=== PATIENT | female | born 1940 | race Caucasian/White ===

== ENCOUNTER 2022-10-31 09:34 | Emergency (ER) | payer MEDICARE, SELFPAY ==
[2022-10-31] VITALS (17 sets, daily range): BP systolic 133–154; BP diastolic 69–87; PULSE 71–87; RESP 18; TEMP 36.6; O2SAT 95–100
--- NOTE | ~2022-10-31 | CT_ITS ---
EXAMINATION: CT abdomen pelvis wo/w con DATE: 10/31/2022 14:24 INDICATION: Hematuria. Low abdominal pain. TECHNIQUE: Computed tomography (CT) of the abdomen and pelvis was performed without and with intraven ous contrast using a total of 130 mL Omnipaque-350 intravenous contrast with a double-bolus technique for simultaneous opacification of the renal parenchyma and renal collecting system. Automated exposu re control and iterative reconstruction technique were employed. The dose-length product was 841.17 m Gy-cm. COMPARISON: None FINDINGS: The visualized portions of the lung bases and is a mild atelectasis. No pleural effusion. The heart s ize is normal. No pericardial effusion. There is ectasia of ascending aorta measuring 4.3 cm . The li lyly, gallbladder, spleen, pancreas, adrenal glands, and left kidney are normal. There is a 7 mm cyst in right kidney. There is no urolithiasis. The ureters are well opacified and are normal. The bladder is distended. There is diverticulosis of the colon without evidence of diverticulitis. There are no dilated loops of bowel. The appendix is not visualized. There is calcified atherosclerosis of the aor ta and many of the other arteries. There are no pathologically enlarged lymph nodes. There is no free intraperitoneal fluid. There is severe thoracic and lumbar spondylosis. There is mild chronic anteri or wedging of T8 vertebral body. IMPRESSION: 1. No etiology for hematuria. Reviewed, dictated and finalized at location A.
[2022-10-31 09:59] LABS: Appearance Urine Clear (Clear); Bacteria Urine None Seen /hpf; Bilirubin Urine Negative (Negative); Blood Urine 3+ (Negative); Color Urine Yellow (Yellow); Glucose Urine UA Negative (Negative); Ketones Urine Negative (Negative); Leukocyte Esterase Ur 2+ LEU/UL (Negative); Nitrate Urine Negative (Negative); Non Pathogenic Casts 0-2; Protein Urine 1+ mg/dL (Negative); RBC Urine >100 /hpf (0-2); Squamous Epithelial Cell Urine None seen /hpf (Few); Urobilinogen Urine 0.2 mg/dL (<2.0); WBC Urine >100 /hpf
[2022-10-31 10:02] LABS: Add Urine Microscopic? YES
--- NOTE | 2022-10-31 11:52 | ED.FEMALEGU ---
HPI - Female Genitourinary General Chief complaint: Urogenital-Female Stated complaint: Blood in urine Time Seen by Provider: 10/31/22 10:59 Source: patient Mode of arrival: ambulatory Limitations: no limitations History of Present Illness HPI Narrative: Patient is a 81 y/o female who presents to the ED with c/o hematuria. Patient reports she noticed blood in her urine last night and this morning. She has noticed small clots coming out in the urine today. Denies any significant dysuria. Denies urinary frequency or urgency. She called her primary care doctor and was referred here for further evaluation. She has had some lower abdominal discomfort over the last couple of days, but denies any back pain, fevers, nausea, vomiting. Denies diarrhea, rectal bleeding, melena. Related Data Allergies Allergy/AdvReac Type Severity Reaction Status Date / Time No Known Allergies Allergy Verified 10/31/22 10:11 Review of Systems Review of Systems: CONSTITUTIONAL: Denies fever, chills, or sweats. CARDIOVASCULAR: Denies chest pain. RESPIRATORY: Denies dyspnea. GASTROINTESTINAL: See HPI. GENITOURINARY: See HPI. SKIN: Denies rash or itching. MUSCULOSKELETAL: Denies back pain, joint pain, or myalgia. NEUROLOGIC: Denies headache, numbness, or weakness. All systems reviewed & are unremarkable except as noted in HPI and below Exam Narrative: GENERAL: Well appearing, well-nourished, non-toxic, in no acute distress. HEAD: Normocephalic, atraumatic. NECK: Supple. No adenopathy, no masses. RESPIRATORY: Airway patent, respirations nonlabored. Clear to auscultation bilaterally, no rales, rhonchi, wheezing. CARDIOVASCULAR: Regular rate and rhythm without murmurs, rubs, or gallops. Radial pulses 2+ and equal bilaterally. ABDOMINAL: Soft, no significant reproducible tenderness throughout abdomen, nondistended, no hepatosplenomegaly. Normoactive BS. MUSCULOSKELETAL: Moves all extremities. Strength/ROM intact without gross deformities. SKIN: Warm, dry, normal color. No rashes. NEURO: A&O X3. Speech clear. Cranial nerves II-XII grossly intact. Steady gait. No ataxic movements. PSYCHIATRIC: Appropriate mood and affect. Normal interaction. Course Vital Signs Vital signs: Vital Signs Pulse Rate 87 08/25/23 09:41 Respiratory Rate 18 10/31/22 09:41 Blood Pressure 154/87 H 10/31/22 09:41 Pulse Oximetry 100 10/31/22 09:41 Oxygen Delivery Room Air 10/31/22 09:41 Temperature 97.8 F 10/31/22 12:12 Pulse Rate 71 10/31/22 12:46 Respiratory Rate 18 10/31/22 12:46 Blood Pressure 148/69 H 10/31/22 14:31 Pulse Oximetry 100 10/31/22 15:19 Oxygen Delivery Room Air 10/31/22 09:41 MDM - Female Genitourinary MDM Narrative Medical decision making narrative: Patient presented to ED with report of painless hematuria. Vitals stable upon arrival. UA consistent with infection with 2+ esterase, greater than 100 RBC and WBC. Sent for culture. Basic laboratory studies obtained and showing leukocytosis of 11.9. Stable kidney function with creatinine of 0.7. CMP otherwise unremarkable. CT urogram obtained and without abnormalities. No bladder lesions, ureterolithiasis, or other abnormalities. Discussed lab and imaging findings with patient. She has remained stable throughout ED stay. Given fluids and ceftriaxone in the ED. Discussed likelihood of hemorrhagic cystitis, need for antibiotic treatment and close urology follow-up. Patient in agreement with this plan. Will be discharged on Keflex. Discussed strict return precautions. Patient discharged in stable condition. Patient CT scan did show ectasia of her ascending aorta. Discussed this with patient at length. Advised follow-up with primary care doctor for further monitoring. Medical Records Attestation: I reviewed the patient's medical records. Lab Data Attestation: I reviewed the patient's lab results. 10/31/22 12:54 10/31/22 12:54
[2022-10-31] MEDS: SODIUM CHLORIDE 0.9% IV 1,000 ML 999 ML IV CONT (12:52)
[2022-10-31 13:01] LABS: Basophils Percent Auto 0.3 % (0.2-1.2); Eosinophils Absolute Auto 0.1 K/mm3 (0-0.3); Eosinophils Percent Auto 0.8 % (0-4.4); Hematocrit 38.9 % (37.0-47.0); Hemoglobin 12.5 g/dL (12.0-15.0); Immature Granulocyte Absolute 0.03 K/mm3 (0.00-0.031); Immature Granulocyte Percent A 0.3 % (0-0.5); Lymphocytes Absolute Auto 1.75 K/mm3 (0.9-3.2); Lymphocytes Percent Auto 14.7 % (18.3-44.2); Mean Corpuscular HGB Conc 32.1 g/dl (32-36); Mean Corpuscular Hemoglobin 30.1 pg (26-34); Mean Corpuscular Volume 93.7 fl (80-100); Mean Platelet Volume 8.7 fl (7.4-10.4); Monocytes Absolute Auto 0.7 K/mm3 (0.1-0.6); Monocytes Percent Auto 5.9 % (2.6-8.5); Neutrophils Absolute Auto 9.3 K/mm3 (1.3-6.7); Platelet Count Result 231 k/mm3 (150-375); Red Blood Count 4.15 M/mm3 (4.2-5.4); Red Cell Distribution Width 13.2 % (11.5-14.5); White Blood Count 11.9 K/mm3 (4.5-10.0)
[2022-10-31 13:22] LABS: Sodium 139 mmol/L (137-145)
[2022-10-31 13:27] LABS: Alanine Aminotransferase 21 U/L (6-35); Albumin Level 3.9 g/dL (3.5-5.1); Alkaline Phosphatase 58 U/L (38-126); Anion Gap 4 mmol/L (8-16); Aspartate Amino Transferase 33 U/L (14-36); Bilirubin,Total 0.7 mg/dL (0.2-1.3); Blood Urea Nitrogen 20 mg/dL (7-17); Calcium 9.1 mg/dL (8.4-10.2); Carbon Dioxide 29 mmol/L (22-30); Chloride 106 mmol/L (98-107); Estimated CRCL calculation 55 ml/min; Estimated Glomerular Filt Rate > 60; Glucose 86 mg/dL (65-110); Potassium 4.3 mmol/L (3.4-5.0)
== END 2022-10-31 16:06 | disposition home or self-care (01) ==
PROVIDERS: Emergency Medicine; Emergency Provider Physician Assistant; PCP Internal Medicine
DX: N30.01 Acute cystitis with hematuria (principal); I77.819 Aortic ectasia, unspecified site
CPT/HCPCS: 36415; 74178; 80053; 81001; 85025; 87077; 87086; 87186; 96361; 96365; 96366; 99284; J0696; J7030; Q9967

== ENCOUNTER 2023-04-23 08:33 | Outpatient (CLI) | payer MEDICARE, SELFPAY ==
--- NOTE | ~2023-04-23 | CT_ITS ---
EXAMINATION: CTA chest DATE: 04/23/2023 09:20 INDICATION: Aneurysm of ascending aorta without rupture. TECHNIQUE: Computed tomographic angiography (CTA) of the chest was performed with 100 mL Omnipaque-35 0 intravenous contrast. Automated exposure control and iterative reconstruction technique were employ ed. The dose-length product was 200.23 mGy-cm. Maximum intensity projection 3D-reconstructions of the aorta and other arteries were constructed by the technologist on a separate workstation. COMPARISON: CT abdomen and pelvis 10/31/2022 FINDINGS: There is mild scarring at the lung apices. A calcified left lung nodule is consistent with old granulomatous disease. There is mild atelectasis bilaterally. No pleural effusion. There is a 9 m m nodule in right lower lobe, likely not clinically significant. The heart size is normal. Superior v michael cava is duplicated. No pericardial effusion. The aorta measures 3.5 cm at the sinuses of Valsalva , 3.1 cm at the sinotubular junction, 4.4 cm in the mid ascending aorta, 3.1 cm at the isthmus, and 3 .1 cm in the mid descending aorta. Aortic atherosclerosis is noted. There is cortical thinning of the kidneys. There is a 7 mm cyst in right kidney. There is severe cervical and thoracic spondylosis. Th ere is mild chronic anterior wedging of multiple midthoracic vertebral bodies. IMPRESSION: 1. Ectasia of ascending aorta measuring 4.4 cm. Reviewed, dictated and finalized at location A. 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
[2023-04-23 08:59] LABS: Estimated Glomerular Filt Rate 48
== END 2023-04-23 08:34 | disposition home or self-care (01) ==
LOC: ANHIMG 08:37
PROVIDERS: PCP Internal Medicine; Visit Provider Internal Medicine Cardiovascular Disease
DX: I71.40 Abdominal aortic aneurysm, without rupture, unspecified (principal)
CPT/HCPCS: 71275; Q9967

== ENCOUNTER 2023-05-22 14:10 | Outpatient (CLI) | payer MEDICARE, SELFPAY ==
--- NOTE | ~2023-05-22 | US_ITS ---
US arterial ankle brachial ind INDICATION: Bilateral leg pain TECHNIQUE: Segmental pressures and plethysmographic and Doppler waveforms of the brachial and lower e xtremity arteries were obtained. COMPARISON: None. FINDINGS: Right and left brachial artery pressures of 120 mm Hg and 123 mm Hg, respectively, are concordant (no rmal difference <= 30 mmHg). The right ankle-brachial index (LUZ) is 1.08 (normal >= 0.9-1.0). The right great toe-brachial index (TBI) is 0.4 (normal >= 0.60). The left LUZ is 1.12. The left TBI is 0.43. IMPRESSION: 1. Diminished bilateral toe brachial indices, consistent with peripheral arterial disease. Reviewed, dictated and finalized at location A. IMPRESSION: 1. Diminished bilateral toe brachial indices, consistent with peripheral arteri al disease.
== END 2023-05-22 14:11 | disposition home or self-care (01) ==
LOC: ANHIMG 14:14
PROVIDERS: PCP Internal Medicine; Visit Provider Internal Medicine
DX: I73.9 Peripheral vascular disease, unspecified (principal)
CPT/HCPCS: 93922

== ENCOUNTER 2023-06-08 10:41 | Outpatient (CLI) | payer MEDICARE, SELFPAY ==
[2023-06-08 12:15] LABS: Cholesterol 255 mg/dL (0-200); HDL Direct 66 mg/dL; Triglycerides 145 mg/dL (<150)
[2023-06-08 12:26] LABS: LDL Cholesterol Direct 145 mg/dL
== END 2023-06-08 10:42 | disposition home or self-care (01) ==
LOC: ANHLAB 10:45
PROVIDERS: PCP Internal Medicine; Visit Provider Internal Medicine
DX: I73.9 Peripheral vascular disease, unspecified (principal); I71.21 Aneurysm of the ascending aorta, without rupture
CPT/HCPCS: 36415; 80061

== ENCOUNTER 2023-11-09 18:32 | Emergency (ER) | payer MEDICARE, SELFPAY ==
--- NOTE | ~2023-11-09 | XR_ITS ---
EXAMINATION: XR chest 2V DATE: 11/09/2023 21:08 INDICATION: Cough, body aches and chills TECHNIQUE: PA and lateral views of the chest were obtained. COMPARISON: Chest CT dated 04/23/2023 FINDINGS: The lungs are clear with no focal airspace opacities, pulmonary edema, pleural effusion or pneumothor ax. The cardiomediastinal silhouette is normal. Mild thoracic kyphosis with moderate spondylosis. IMPRESSION: 1. No acute cardiopulmonary disease. Reviewed, dictated and finalized at location A.
[2023-11-09 18:35] VITALS: BP 134/85; PULSE 99; RESP 18; TEMP 37.5; O2SAT 99
[2023-11-09 19:17] LABS: Strep Group A RT-PCR NOT DETECTED (Negative)
[2023-11-09 19:31] LABS: Influenza A QL RT-PCR Negative (Negative); Influenza B QL RT-PCR Negative (Negative); SARS-CoV-2 RNA PCR Negative (Negative)
--- NOTE | 2023-11-09 20:57 | ED.GENADULT ---
HPI - General Adult General Chief complaint: Unspecified Stated complaint: ST, chills Time Seen by Provider: 11/09/23 20:34 Source: patient Mode of arrival: ambulatory Limitations: no limitations History of Present Illness HPI narrative: This is a 82 year old female that presents to the ER for cold symptoms. Present over the last week. Reports cough, congestion, rhinorrhea, sore throat. Also reports left ear pain. Reports chills. Patient took Tylenol prior to arrival. Denies shortness of breath. Related Data Allergies Allergy/AdvReac Type Severity Reaction Status Date / Time No Known Allergies Allergy Verified 10/31/22 10:11 Review of Systems Review of Systems: CONSTITUTIONAL: Reports chills. Denies fever ENT: Reports rhinorrhea, congestion, sore throat, and otalgia. RESPIRATORY: Reports cough. Denies dyspnea. All systems reviewed & are unremarkable except as noted in HPI and below PMFSH Past Medical History Medical History (Updated 11/09/23 @ 21:22 by Blanka Keenan PA-C) History of hyperlipidemia History of hypertension Social History Social History (Updated 11/09/23 @ 21:19 by Blanka Keenan PA-C) Smoking status: Never smoker Exam Narrative: GENERAL: Well-appearing, well-nourished, and in no acute distress. HEAD: Normocephalic, atraumatic. EYES: EOMI. ENT: Nares clear, no rhinorrhea or epistaxis. Mucous membranes moist. Oropharynx with mild redness, without tonsillar hypertrophy exudate or other lesions. Right TM pearly davies non-bulging. Left TM erythematous NECK: Supple. No adenopathy or masses. CHEST: Clear to auscultation. No respiratory distress. No wheezes rales or rhonchi HEART: Regular rate and rhythm. No murmur heard. Normal peripheral pulses. EXTREMITIES: Normal range of motion. No edema. SKIN: Warm, dry, no rash. NEURO: No focal deficits. Alert and oriented x3. PSYCH: Normal mood and affect Course Course Emergency Course: Patient updated on workup and agrees with plan of care Vital Signs Vital signs: Vital Signs Temperature 99.5 F 11/09/23 18:35 Pulse Rate 99 11/09/23 18:35 Respiratory Rate 18 11/09/23 18:35 Blood Pressure 134/85 11/09/23 18:35 Pulse Oximetry 99 11/09/23 18:35 Oxygen Delivery Room Air 11/09/23 18:35 Temperature 99.5 F 11/09/23 18:35 Pulse Rate 99 11/09/23 18:35 Respiratory Rate 18 11/09/23 18:35 Blood Pressure 134/85 11/09/23 18:35 Pulse Oximetry 99 11/09/23 18:35 Oxygen Delivery Room Air 11/09/23 18:35 Medical Decision Making MDM Narrative Medical decision making narrative: Patient presents to the emergency department for cold symptoms present over the last week. She is afebrile and nontoxic appearing. Oxygen saturation is normal on room air. Chest x-ray without evidence of pneumonia. Influenza, COVID, and strep screens are negative. Patient does have evidence of otitis media in the left ear. Will be started on oral antibiotics. Symptoms/exam also consistent with bronchitis. Will be given albuterol inhaler if needed. She is to follow-up with PCP. She was given warnings to return to the ER Vital Signs Vital Signs: Vital Signs Temperature 99.5 F 11/09/23 18:35 Pulse Rate 99 11/09/23 18:35 Respiratory Rate 18 11/09/23 18:35 Blood Pressure 134/85 11/09/23 18:35 Pulse Oximetry 99 11/09/23 18:35 Oxygen Delivery Room Air 11/09/23 18:35 Temperature 99.5 F 11/09/23 18:35 Pulse Rate 99 11/09/23 18:35 Respiratory Rate 18 11/09/23 18:35 Blood Pressure 134/85 11/09/23 18:35 Pulse Oximetry 99 11/09/23 18:35 Oxygen Delivery Room Air 11/09/23 18:35 Lab Data Lab results reviewed: Yes I reviewed the patient's lab results. Labs: Lab Results 11/09/23 Range/Units 18:41 Influenza A (RT-PCR) Negative (Negative) Influenza B (RT-PCR) Negative (Negative) SARS-CoV-2 RNA (RT-PCR) Negative (Negative) Group A Strep (PCR) Not detected (Negativ
[2023-11-09] MEDS: AMOXICILLIN/CLAVULANATE K 875-125 MG TAB 1 TABLET PO (21:56)
[2023-11-09 22:00] VITALS: BP 154/75; PULSE 83; RESP 16; TEMP 36.7; O2SAT 95
== END 2023-11-09 22:08 | disposition home or self-care (01) ==
PROVIDERS: Emergency Medicine; Emergency Provider Physician Assistant; PCP Internal Medicine
DX: H66.90 Otitis media, unspecified, unspecified ear (principal); J20.9 Acute bronchitis, unspecified; E78.5 Hyperlipidemia, unspecified; I10 Essential (primary) hypertension; Z20.822 Contact with and (suspected) exposure to COVID-19
CPT/HCPCS: 71046; 87636; 87651; 99283; A9270

== ENCOUNTER 2024-04-27 09:06 | Outpatient (CLI) | payer OTHER, SELFPAY ==
--- NOTE | ~2024-04-27 | CT_ITS ---
Clinical Indication: Aortic aneurysm rupture CT Scan of the Chest with Contrast: Technique: Contiguous sections were acquired throughout the chest after intravenous administration of 100 cc of Omnipaque 350. Dose reduction technique was used on this scan by utilizing automated expos ure control and iterative reconstruction technique. The dose-length product (DLP) was 181.86 mGy-cm. COMPARISON: 04/23/2023 Findings: There is no evidence of any significant mediastinal, hilar or axillary lymphadenopathy. There is no f illing defect in the pulmonary arterial tree to suggest pulmonary embolus. Ascending aortic aneurysm measures 4.5 cm in diameter. There is no evidence of pleural or pericardial effusion. The lungs are clear. No pulmonary nodules or infiltrates are noted. Images through the upper abdomen reveal no abnormalities. Impression: Ascending aortic aneurysm measures 4.5 cm in diameter. Clear lungs. Reviewed, dictated and finalized at [facility]. [employer] Impression: Ascending aortic aneurysm measures 4.5 cm in diameter. Clear lungs.
--- OUTSIDE RECORDS SUMMARY | 2024-04-27 09:14 | XMS_ITS | Clinical Summary ---
Author Organization [facility] Address [address] [place] [address] Phone Care Team Providers Care Vending Machine Technician Name Role Phone Rory Tilley MD Primary Care Provider Allergies No known active allergies Medications Calcium Carbonate+Vitam in D 600-200 MG-UNIT Tablet Activ e Multiple Vitamins-Minera ls (Multivitamin Adults 50+) Tablet Active latanoprost (XALATAN) 0.005 % Solution INSTILL 1 DROP INTO EACH EYE ONCE DAILY IN THE EVENING 2 Active fish oil-omega-3 fatty acids 1000 MG Capsule Take 1,000 mg by mouth daily. Active triamcinolone (KENALOG) 0.1 % Ointment Apply thin film to affected area(s) twice daily until healed. 80 g 3 3 Active albuterol 108 (90 Base) MCG/ACT Aerosol Solution 4 Active atorvastatin (LIPITOR) 10 MG Tablet TAKE 1 TABLET BY MOUTH DAILY 30 Tablet 3 4 Active lisinopril (PRINIVIL, ZESTRIL) 10 MG Tablet Take 1 Tablet by mouth daily. 90 Tablet 1 5 Active lisinopril (PRINIVIL, ZESTRIL) 10 MG Tablet Take 1 Tablet by mouth daily. 90 Tablet 1 4 04/18/19 Discontinu ed(Reorder ) lisinopril (PRINIVIL, ZESTRIL) 10 MG Tablet Take 1 Tablet by mouth daily. 90 Tablet 1 5 04/20/19 25 Discontinu ed(Reorder ) Active Problems Problem Noted Date Diagnosed Date Other hyperlipidemia 12/02/2023 Aneurysm of ascending aorta without rupture 07/2022 Essential hypertension, benign 11/13/2021 Encounters Date Type Department Care Team Description [facility] [address] [place] [address] Rory Tilley MD 04/18/2024 [facility] [address] [place] [address] Rory Tilley MD Medication Refill 02/12/2024 [facility] [address] [place] [address] Rory Tilley MD Medication Refill from Last 3 Months Immunizations Immunization Administration Dates Next Due Influenza Vaccine, Quadrivalent, PF 11/13/2021 Influenza, Quadrivalent, Adjuvanted 11/11/2022 Family History Medical History Relation Name Comments No Known Problems Brother No Known Problems Sister Relation Name Status Comments Brother Alive Father Mother Sister Alive Social History Tobacco Use Types Packs/Day Years Used Date Smoking Tobacco: Never Passive Smoke Exposure: Never Smokeless Tobacco: Never Tobacco Cessation:Counseling Given: Not Answered Alcohol Use Standard Drinks/Week Comments Not Currently 0 (1 standard drink = 0.6 oz pur e alcohol) [facility] Utilities Answer Date Recorded In the past 12 months has e [employer], gas, oil, or water [employer] threatened to shut off services in your home? No 05/10/2023 Social Connection and Isolat ion Panel [NHANES] Answer Date Recorded In a typical week, how many times do you talk on the phone with family, friends, or neighbors? Three times a week 05/10/2023 How often do you get togethe r with friends or relatives? Three times a week 05/10/2023 How often do you attend chur or judaism services? More than 4 times per year 05/10/2023 Do you belong to any clubs o r organizations such as quaker groups, unions, fraternal or athletic groups, or school groups? Yes 05/10/2023 How often do you attend meet ings of the clubs or organizations you belong to? More than 4 times per year 05/10/2023 Are you , , di vorced, , never , or living with a partner? 05/10/2023 AUDIT-C Answer Date Recorded Q1: How often do you have a drink containing alcohol? Never 05/10/2023 Q2: How many drinks containi ng alcohol do you have on a typical day when you are drinking? Patient does not drink Q3: How often do you have si x or more drinks on one occasion? Never 05/10/2023 Overall Financial Resource Strain (CARDIA) Answe r Date Recorded How hard is it for you to pa y for the very basics like food, housing, medical care, and heating? Not hard at all 05/10/2023 PHQ-2 Answer Date Recorded Total Score - Questions 1-9 0 07/2023 [facility]ational Stress Questionnaire Answer Date Recorded Do you feel stress - tense, restless, nervous, or anxious, or unable to sleep at night because your mind is troubled all the time - these days? Not at all 05/10/2023 Exercise Vital Sign Answer Date Recorde d On average, how many days pe r week do you engage in moderate to strenuous exercise (like a brisk walk)? 4 days 05/10/2023 On average, how many minutes do you engage in exercise at this level? 60 min 05/10/2023 Hunger Vital Sign Answer Date Recorded Within the past 12 months, y ou worried that your food would run out before you got the money to buy more. Never true 05/10/19 24 Within the past 12 months, t he food you bought just didn't last and you didn't have money to get more. Never true 05/10/2023 PRAPARE - Transportation Answer Date Re corded In the past 12 months, has l ack of transportation kept you from medical appointments or from getting medications? No 05/2023 In the past 12 months, has l ack of transportation kept you from meetings, work, or from getting things needed for daily living? No 05/10/2023 Housing Stability Vital Sign Answer Rod e Recorded In the last 12 months, was t here a time when you were not able to pay the mortgage or rent on time? No 05/10/2023 In the last 12 months, how many places have you lived? 1 05/10/2023 In the last 12 months, was t here a time when you did not have a steady place to sleep or slept in a long-term (including now)? No 05/10/2023 Sexually Active Control Partners Comments Not Currently Comments No Sex and Gender Information Value Date Recorded Sex Assigned at Not on file Legal Sex Female 9:35 AM CDT Gender Identity Not on file Sexual Orientation Not on file Last Filed Vital Signs Vital Sign Reading Time Taken Comments Blood Pressure 120/66 12/02/2023 2:31 PM CDT Pulse 64 12/02/2023 2:31 PM CDT Temperature 36.2 C (97.1 F) 12/02/2023 2:31 PM CDT Respiratory Rate 12 12/02/2023 2:31 PM CDT Oxygen Saturation 97% 12/02/2023 2:31 PM CDT Inhaled Oxygen Concentration - - Weight 67.7 kg (149 lb 3.2 oz) 12/02/2023 2:31 P M CDT Height 170.2 cm (5' 7 ) 12/02/2023 2:31 PM CDT Body Mass Index 23.37 12/02/2023 2:31 PM CDT Plan of Treatment Upcoming Encounters Date Type Department Care Team (Late st Contact Info) Description 05/31/2024 9:30 AM CDT Office Visit [facility] [place] [address] [place] [address] Rory Tilley MD [address] [place] [address] Health Maintenance Due Date Last Done Comments Hepatitis C Virus (HCV) Screening 1940 TdaP Immunization 1940 Zoster Immunization (1 of 2) 1992 Respiratory Syncytial Virus (RSV) Immunization (Adult) (1 - 1-dose 75+ series) 2017 Influenza Immunization (#1) 2023 09/0 07/2022, 11/13/2021, 12/04/2020, Additional history exists SARS-COV-2 Immunization (2023- season) 2023 06/29/2020, 05/31/2020 DEXA Bone Density 05/16/2024 Postponed from 1942 (Lower Priority for Now) Pneumococcal Immunization (50+ years) Completed 10/18/2019, 04/09/2018 Hepatitis B Immunization Aged Out No longer eligible based on patient's age to complete this topic Meningococcal Immunization (ACWY) Aged Out No longer eligible based on patient's age to complete this topic Rotavirus Immunization Aged Out No lo nger eligible based on patient's age to complete this topic Insurance MEDICARE C BCBS PPO Care Teams Vending Machine Technician Relationship Specialty Start Date End Date Rory Tilley MD [address] [facility] [place] [address] PCP - General Internal Medicine 11/13/21
--- OUTSIDE RECORDS SUMMARY | 2024-04-27 09:14 | XMS_ITS | Encounter Summary ---
Author Organization [facility] Address [address] [place] [address] Phone Care Team Providers Care Awning Spreader Name Role Phone Rory Tilley MD Primary Care Provider Reason for Visit * Reason Comments Medication Refill Encounter Details Date Type Department Care Team (Late st Contact Info) Description 06/24/2023 Refill [facility] [place] [address] [place] [id number] Rory Tilley MD [address] [place] [address] Medication Refill Social History Tobacco Use Types Packs/Day Years Used Date Smoking Tobacco: Never Passive Smoke Exposure: Never Smokeless Tobacco: Never Alcohol Use Standard Drinks/Week Comments Not Currently 0 (1 standard drink = 0.6 oz pur e alcohol) [place] Utilities Answer Date Recorded In the past 12 months has e electric, gas, oil, or water company threatened to shut off services in your [...] How often do you attend chur or sikhism services? More than 4 times per year 05/10/2023 Do you belong to any clubs o r organizations such as alevism groups, unions, fraternal or athletic groups, or [...] Total Score - Questions 1-9 0 07/2023 [facility] - Occupational Stress Questionnaire Answer Date Recorded [...] on file Sexual Orientation Not on file documented as of this encounter Miscellaneous Notes * Telephone Encounter - Daphnie Peter RN - 06/24/2023 12:38 PM CDT Medication failed the protocol, provider to review and approve the medication order if appropriate. Requested Prescriptions Pending Prescriptions Disp Refills lisinopril (PRINIVIL, ZESTRIL) 10 MG Tablet [Pharmacy Med Name: LISINOPRIL 10MG TABLETS] 90 Tablet 1 Sig: TAKE 1 TABLET BY MOUTH DAILY MAJOR Inhibitors Protocol Failed - 06/24/2023 12:12 PM Failed - Serum potassium on record in past 12 months No results found for: POTASSIUM , POCTK Failed - GFR on record in past 12 months No results found for: GFRNA Passed - Blood pressure on record in past 12 months Clinician-entered: BP Readings from Last 3 Encounters: 05/12/23 118/60 11/11/22 118/72 10/10/22 140/80 Patient-entered: No data recorded Passed - Visit with relevant provider in past 12 months or upcoming 90 days Recent Visits Date Type Provider Dept 05/12/23 Office Visit Rory Tilley MD [facility] 11/11/22 Office Visit Rory Tilley MD [facility] 10/10/22 Office Visit Ashlyn Scott Kacie, PAC [facility] 09/22/22 Office Visit Ashlyn Scott, PAC [facility] 07/23/22 Office Visit Rory Tilley MD [facility] [place] Showing recent visits within past 365 days and meeting all other requirements Future Appointments No visits were found meeting these conditions. 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
--- OUTSIDE RECORDS SUMMARY | 2024-04-27 09:14 | XMS_ITS | Clinical Summary ---
Author Organization [facility] [place] [address] Address [facility] [place] [place] [address] Care Team Providers Care Commercial Litigation Paralegal Name Role Phone Rory Tilley MD Primary Care Provider +1- [phone] Allergies No known active allergies Medications lisinopriL (PRINIVIL,ZESTRIL) 10 mg tablet 12/29/2022 Active latanoprost (XALATAN) 0.005 % ophthalmic solution 01/01/2023 Active kkobnovr-ykz-QP-ly copen-lutein 0.4 mg-300 mcg- 250 mcg tablet Active calcium carbonate-vitamin D3 1500 mg (600 mg elemental) -200 units per tablet Act pastora Active Problems Problem Noted Date Diagnosed Date Aneurysm of ascending aorta without rupture 01/08 Essential hypertension 01/26/2023 Gross hematuria 01/26/2023 Surgical History Surgery Date Site/Laterality Comments APPENDECTOMY HYSTERECTOMY Medical History Medical History Date Comments Hypertension Hyperlipidemia Family History Medical History Relation Name Comments Alzheimer's disease Father Heart disease Father Pancreatic cancer Mother Relation Name Status Comments Father Mother Social History Tobacco Use Types Packs/Day Years Used Date Smoking Tobacco: Never Passive Smoke Exposure: Past Smokeless Tobacco: Never Tobacco Cessation:Counseling Given: Not Answered Personal Safety Answer Date Recorded Getting School Help Needed Not on file 02/24 Comments Unknown Sex and Gender Information Value Date Recorded Sex Assigned at Not on file Legal Sex Female 9:21 AM CDT Gender Identity Not on file Sexual Orientation Not on file Obstetrics History Last Filed Vital Signs Vital Sign Reading Time Taken Comments Blood Pressure 108/70 04/27/2023 10:36 AM QUALITY REVIEWER Pulse 56 04/27/2023 10:36 AM QUALITY REVIEWER Temperature - - Respiratory Rate - - Oxygen Saturation 90% 04/27/2023 10:36 AM QUALITY REVIEWER Inhaled Oxygen Concentration - - Weight 69.4 kg (153 lb 1.6 oz) 04/27/2023 10:36 AM QUALITY REVIEWER Height 170.2 cm (5' 7 ) 04/27/2023 10:36 AM QUALITY REVIEWER Body Mass Index 23.98 04/27/2023 10:36 AM QUALITY REVIEWER Plan of Treatment Health Maintenance Due Date Last Done Comments Depression Screening 1942 Fall Risk Assessment 1942 DTaP/Tdap/Td Vaccine (1 - Tdap) 1953 Hepatitis B Screening 1960 Zoster Vaccine (1 of 2) 1992 Well Visit 65+ 11/29/2007 Osteoporosis Screening-Bone Density Scan 04/25/2023 04/25/2021 Covid-19 Vaccine (3 - 2023-2 5 season) 2023 06/29/2020, 05/31/2020 Pneumococcal vaccine 65+ Completed 10/18/2019, 03/2018 Influenza Vaccine Completed 12/17/2023, , 12/04/2020, Additional history exists Insurance [place] [id number] [place] [id number] Care Teams Commercial Litigation Paralegal Relationship Specialty Start Date End Date Rory Tilley MD [address] [place] [address] PCP - General Internal Medicine 07/23/22
--- OUTSIDE RECORDS SUMMARY | 2024-04-27 09:14 | XMS_ITS | Referral Summary ---
Author Organization [facility] [place] [address] Address [facility] [place] [address] Care Team Providers Care Pediatric Nephrologist Name Role Phone Rory Tilley MD Primary Care Provider +1- [phone] Allergies No known active allergies Medications lisinopriL (PRINIVIL,ZESTRIL) 10 mg tablet 12/29/2022 Active latanoprost (XALATAN) 0.005 % ophthalmic solution 01/01/2023 Active icawbnav-bdp-YK-ly copen-lutein 0.4 mg-300 mcg- 250 mcg tablet Active calcium carbonate-vitamin D3 1500 mg (600 mg elemental) -200 units per tablet Act pastora Active Problems Problem Noted Date Diagnosed Date Aneurysm of ascending aorta without rupture 01/08 Essential hypertension 01/26/2023 Gross hematuria 01/26/2023 Social History Tobacco Use Types Packs/Day Years [...] Comments Blood Pressure 108/70 04/27/2023 10:36 AM OFFICE ADMINISTRATOR Pulse 56 04/27/2023 10:36 AM OFFICE ADMINISTRATOR Temperature - - Respiratory Rate - - Oxygen Saturation 90% 04/27/2023 10:36 AM OFFICE ADMINISTRATOR Inhaled Oxygen Concentration - - Weight 69.4 kg (153 lb 1.6 oz) 04/27/2023 10:36 AM OFFICE ADMINISTRATOR Height 170.2 cm (5' 7 ) 04/27/2023 10:36 AM OFFICE ADMINISTRATOR Body Mass Index 23.98 04/27/2023 10:36 AM OFFICE ADMINISTRATOR Plan of Treatment Not on file Insurance [place] Care Teams Pediatric Nephrologist Relationship Specialty Start Date End Date Rory Tilley MD [address] [place] [address] PCP - General Internal Medicine 07/23/22
[2024-04-27 09:31] LABS: Estimated Glomerular Filt Rate 53
== END 2024-04-27 09:07 | disposition home or self-care (01) ==
PROVIDERS: PCP Internal Medicine; Visit Provider Internal Medicine Cardiovascular Disease
DX: I71.21 Aneurysm of the ascending aorta, without rupture (principal)
CPT/HCPCS: 71275; Q9967

== ENCOUNTER 2024-10-31 07:07 | Outpatient (CLI) | payer OTHER, SELFPAY ==
--- OUTSIDE RECORDS SUMMARY | 2024-10-31 07:12 | XMS_ITS | Clinical Summary ---
Author Organization [facility] [place] Address [address] [place] [address] Phone Care Team Providers Care Carbon Rod Inserter Name Role Phone Rory Tilley MD Primary Care Provider Allergies No known active allergies Medications Calcium Carbonate+Merle min D 600-200 MG-UNIT Tablet Activ e Multiple Vitamins-Drying Oven Attendant als (Multivitamin Adults 50+) Tablet Active latanoprost (XALATAN) [...] 4 Active atorvastatin (LIPITOR) 10 MG Tablet Take 1 tablet by mouth once daily 30 Tablet 5 Active lisinopril (PRINIVIL, ZESTRIL) 10 MG Tablet Take 1 tablet by mouth once daily 90 Tablet 5 Active lisinopril (PRINIVIL, ZESTRIL) 10 MG Tablet Take 1 Tablet by mouth daily. 90 Tablet 1 5 025 Discontinued atorvastatin (LIPITOR) 10 MG Tablet Take 1 tablet by mouth once daily 30 Tablet 5 025 Discontinued Active Problems Problem Noted Date Diagnosed Date Osteopenia after menopause 10/27/2024 Other hyperlipidemia 12/02/2023 Aneurysm of ascending aorta without rupture 07/2022 Essential hypertension, benign 11/13/2021 Encounters Date Type Department Care Team Description 10/27/2024 9:40 AM CDT Office Visit [facility] - [place] [address] [place] [id number] Rory Tilley MD Essential hypertension, benign (Primary Dx); Other hyperlipidemia; Osteopenia after menopause; Right elbow pain Discharge Disposition: Discharged to home or Selfcare 10/27/2024 Telephone [facility] [address] [place] [address] Rory Tilley MD Labs Only 10/27/2024 Travel 10/15/2024 Refill [facility] Internal Medicine [facility] [address] [place] [address] Rory Tilley MD Medication Refill 09/19/2024 Refill [facility] Internal Medicine [facility] [address] [place] [address] Rory Tilley MD Medication Refill from [...] Never Smokeless Tobacco: Never Tobacco Cessation:Counseling Given: No Alcohol Use Standard Drinks/Week Comments Not Currently 0 (1 standard drink = 0.6 oz pur e alcohol) [facility] Utilities Answer Date Recorded In the past 12 months has e electric, gas, oil, or water company threatened to shut off services in your home? No 05/30/2024 Social Connection and Isolation Panel Answer Date Recorded In a typical week, how many times do you talk on the phone with family, friends, or neighbors? More than three times a week 05/30/2024 How often do you get togethe r with friends or relatives? Three times a week 05/30/2024 How often do you attend chur or temple services? More than 4 times per year 05/30/2024 Do you belong to any clubs o r organizations such as alevism groups, unions, fraternal or athletic groups, or school groups? Yes 05/30/2024 How often do you attend meet ings of the clubs or organizations you belong to? More than 4 times per year 05/30/2024 Are you , , di vorced, , never , or living with a partner? 05/30/2024 AUDIT-C Answer Date Recorded Q1: How often do you have a drink containing alcohol? Never 05/30/2024 Q2: How many drinks containi ng alcohol do you have on a typical day when you are drinking? Patient does not drink Q3: How often do you have si x or more drinks on one occasion? Never 05/30/2024 Overall Financial Resource Strain (CARDIA) Answe r Date Recorded How hard is it for you to pa y for the very basics like food, housing, medical care, and heating? Not very hard 05/30/2024 PHQ-2 Answer Date Recorded Total Score - Questions 1-9 0 05/08 [facility] - Occupational Stress Questionnaire Answer Date Recorded Do you feel stress - tense, restless, nervous, or anxious, or unable to sleep at night because your mind is troubled all the time - these days? Not at all 05/30/2024 Exercise Vital Sign Answer Date Recorde d On average, how many days pe r week do you engage in moderate to strenuous exercise (like a brisk walk)? 0 days 05/30/2024 On average, how many minutes do you engage in exercise at this level? 0 min 05/30/2024 Hunger Vital Sign Answer Date Recorded Within the past 12 months, y ou worried that your food would run out before you got the money to buy more. Never true 05/31/19 25 Within the past 12 months, t he food you bought just didn't last and you didn't have money to get more. Never true 05/30/2024 PRAPARE - Transportation Answer Date Re corded In the past 12 months, has l ack of transportation kept you from medical appointments or from getting medications? No 05/08 In the past 12 months, has l ack of transportation kept you from meetings, work, or from getting things needed for daily living? No 05/30/2024 Housing Stability Vital Sign Answer Rod e [...] place to sleep or slept in a care home (including now)? No 05/10/2023 Housing Stability Vital Sign Answer Rod e Recorded In the last 12 months, was t here a time when you were not able to pay the mortgage or rent on time? No 05/30/2024 In the past 12 months, how m any times have you moved where you were living? 0 05/30/2024 At any time in the past [address] [facility], were you homeless or living in a care home (including now)? No 05/30/2024 Sexually Active Control Partners Comments Not Currently Comments No Sex and Gender Information Value Date Recorded Sex Assigned at Not on file Legal Sex Female 9:35 AM CDT Gender Identity Female 10/28/2024 3:19 PM CDT Sexual Orientation Not on file Last Filed Vital Signs Vital Sign Reading Time Taken Comments Blood Pressure 130/72 10/27/2024 9:50 AM CDT Pulse 76 10/27/2024 9:50 AM CDT Temperature 36.3 C (97.4 F) 10/27/2024 9:50 AM CDT Respiratory Rate 12 12/02/2023 2:31 PM CDT Oxygen Saturation 97% 10/27/2024 9:50 AM CDT Inhaled Oxygen Concentration - - Weight 64 kg (141 lb) 10/27/2024 9:50 AM CDT Height 170.2 cm (5' 7) 10/27/2024 9:50 AM CDT Body Mass Index 22.08 10/27/2024 9:50 AM CDT Plan of Treatment Upcoming Encounters Date Type Department Care Team (Late st Contact Info) Description 10/31/2024 2:45 PM CDT Appointment [facility] [address] [place] [address] Rory Tilley MD [address] [place] [address] 05/01/2025 10:20 AM PRODUCT MGR Office Visit [facility] Medical [facility] - [facility] - [place] [address] [place] [address] Rory Tilley MD [address] [place] [address] Health Maintenance Due Date Last Done Comments DEXA Bone Density 1940 Hepatitis C Virus (HCV) Screening 1942 TdaP Immunization 1940 Zoster Immunization (1 of 2) 1992 Respiratory Syncytial Virus (RSV) Immunization (Adult) (1 - 1-dose 75+ series) 2017 SARS-COV-2 Immunization ( season) 2023 06/29/2020, 05/31/2020 Influenza Immunization (#1) 11/07/202412/07, 11/11/2022, 11/13/2021, Additional history exists Pneumococcal Immunization (50+ years) Completed 10/18/2019, 04/09/2018 Hepatitis B Immunization Aged Out No longer eligible based on patient's age to complete this topic Human Papillomavirus (HPV) Immunization Aged Out No longer eligible based on patient's age to complete this topic Meningococcal Immunization (ACWY) Aged Out No longer eligible based on patient's age to complete this topic Rotavirus Immunization Aged Out No lo nger eligible based on patient's age to complete this topic Insurance MEDICARE C [place] Care Teams Carbon Rod Inserter Relationship Specialty Start Date End Date Rory Tilley MD PCP - General Internal Medicine 11/13/21
--- OUTSIDE RECORDS SUMMARY | 2024-10-31 07:12 | XMS_ITS | Patient Health Record ---
Author Organization [facility] Address [address] [address] Care Team Providers Care Electronic Controls Repairer Supervisor Name Role Phone Dglars (POSSIBLY RETIRED)Delbert Primary Ca Provider Unavailable Ernie Caceres Unavailable [phone] Trisha Wood Unavailable Unavailable Reason For Referral No Information Medications Medication SIG (Take, Route, Fr equency, Duration) Notes Start Date End Date Status Latanoprost both eyes once each evening Unknown Calcium 600 MG 1 tablet with meals Orally Twice a day Unknown Multivitamins Orally Unknow n Vitamin D 1000 UNIT 1 tablet Orally Once a day Unknown Low-Dose Aspirin Unk nown Problems Problem Type SNOMED Code ICD Code Onset Dates Problem Status W/U Status Risk Notes Problem Benign neoplasm of right choroid (2398762405689 09) 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 Problem Nuclear senile cataract (985715944) Age-related nuclear cataract, bilateral (H25.13) Active confirmed Problem Vitreous opacities (773839744) Other vitreous opacities, bilateral (H43.393) Active confirmed Problem Bilateral primary open angle glaucoma (7664191156357 9103) Primary open-angle glaucoma, bilateral, 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) Active confirmed Plan Of Treatment Pending Test Test Name Order Date B-scan ultrasound 05/07/2015 B-scan ultrasound 06/11/2015 B-scan ultrasound 09/03/2015 B-scan ultrasound 03/31/2016 Fundus/Nerve Photo 03/31/2016 Fundus/Nerve Photo 09/03/2015 Fundus/Nerve Photo 05/07/2015 Fundus/Nerve Photo 06/11/2015 Fundus/Nerve Photo 03/25/2019 Fundus/Nerve Photo 11/25/2019 Fundus/Nerve Photo 05/25/2020 Fundus/Nerve Photo 11/30/2020 Fundus/Nerve Photo 03/30/2017 Fluorescein Angiography 05/07/2015 Extended Ophthal 05/07/2015 Autofluorescence 09/03/2015 Autofluorescence 03/30/2017 Autofluorescence 03/31/2016 OCT Retina 03/25/2019 OCT Retina 09/03/2015 OCT Retina 03/30/2017 OCT Retina 03/31/2016 OCT Retina 05/04/2015 OCT Retina 05/07/2015 OCT Retina 06/11/2015 Insurance Providers Payer Name Payer Address Payer Phone Subscriber Number Group Number Insured Name Patient Relationship to Insured Coverage Start Date Coverage End Date MEDICARE [place] [address] [place] [address] [id number] Roseanne Martin Self - patient is the insured [facility] [address] [place] [address] [id number] Roseanne Martin Self - patient is the insured 0 Medical (General) History Medical History History ICD Code 2016 glaucoma Surgical History Surgery Date(Month/Year) Appendectomy 1986 Hysterectomy 1970
--- OUTSIDE RECORDS SUMMARY | 2024-10-31 07:12 | XMS_ITS | Encounter Summary ---
Author Organization [facility] Address [address] [place] [address] Care Team Providers Care Food Beverage Supervisor Name Role Phone Rory Tilley MD Primary Care Provider +1- [phone] Encounter Details Date Type Department Care Team (Late st Contact Info) Description 04/27/2024 Orders Only [facility] [place] Health Information Management [address] [place] [id number] Scanning, Provider Social History Tobacco Use Types Packs/Day Years Used Date Smoking Tobacco: Never Passive Smoke Exposure: Past Smokeless Tobacco: Never Comments Unknown Sex and Gender Information Value Date Recorded Sex Assigned at Not on file Legal Sex Female 9:21 AM CDT Gender Identity Not on file Sexual Orientation Not on file documented as of this encounter Plan of Treatment Not on file documented as of this encounter Procedures Procedure Name Priority Date/Time Associated Diagnosis Comments SCAN - LABS 04/27/2024 documented in this encounter Results * SCAN - LABS (04/27/2024) us Provider Scanning Final Result documented in this encounter Visit Diagnoses Not on filedocumented in this encounter Care Teams Food Beverage Supervisor Relationship Specialty Start Date End Date Rory Tilley MD [address] [place] [address] PCP - General Internal Medicine 07/23/22 documented as of this encounter
--- OUTSIDE RECORDS SUMMARY | 2024-10-31 07:12 | XMS_ITS | Encounter Summary ---
Author Organization [facility] Address [address] [place] [address] Phone Care Team Providers Care Cash Applications Analyst Name Role Phone Rory Tilley MD Primary Care Provider Reason for Visit * Reason Comments Medication Refill Encounter Details Date Type Department Care Team (Late st Contact Info) Description 06/24/2023 Refill [facility] - Internal Medicine - [place] [address] [place] [address] Rory Tilley MD [address] [place] [address] Medication Refill Social History Tobacco Use Types Packs/Day Years Used Date Smoking Tobacco: Never Passive Smoke Exposure: Never Smokeless Tobacco: Never Alcohol Use Standard Drinks/Week Comments Not Currently 0 (1 standard drink = 0.6 oz pur e alcohol) [facility] Utilities Answer Date Recorded In the past 12 months has [employer] electric, gas, oil, or water company threatened to shut off services in your home? No 05/10/2023 Social Connection and Isolation Panel Answer Date Recorded In a typical week, how many times do you talk on the phone with family, friends, or neighbors? Three times a week 05/10/2023 How often do you get togethe r with friends or relatives? Three times a week 05/10/2023 How often do you attend chur ch or alevism services? More than 4 times per year 05/10/2023 Do you belong to any clubs o r organizations such as christianity groups, unions, fraternal or athletic groups, or [...] Total Score - Questions 1-9 0 07/2023 [facility] - Occupational [...] place to sleep or slept in a usp (including now)? No 05/10/2023 Sexually Active Control Partners Comments Not Currently Comments No Sex and Gender Information Value Date Recorded Sex Assigned at Not on file Legal Sex Female 9:35 AM CDT Gender Identity Female 10/28/2024 3:19 PM CDT Sexual Orientation Not on file documented as [...] past 12 months No results found for: POTASSIUM, POCTK Failed - GFR on record in [...] Dept 05/12/23 [facility] Visit [facility] Office Visit Rory Tilley MD [facility] [place] 10/10/22 Office Visit Ashlyn Scott Kacie, PAC [facility] [place] 09/22/22 Office Visit Ashlyn Scott, PAC [facility] [place] 07/23/22 Office Visit [facility] [place] [place] [facility] [place] Showing recent visits within past 365 days and meeting all other requirements Future Appointments No visits were found meeting these conditions. Showing future appointments within next 90 days and meeting all other requirements documented in this encounter Plan of Treatment Upcoming Encounters Date Type Department Care Team (Late st Contact Info) Description 10/31/2024 2:45 PM CDT Appointment [facility] M[facility]ography [address] [place] [address] Rory Tilley MD [address] [place] [address] 05/01/2025 10:20 AM LATCHER Office Visit [facility] Medical [facility] - [facility] - [place] [address] [place] [address] Rory Tilley MD [address] [place] [address] documented as of this encounter Visit Diagnoses Not on filedocumented in this encounter Additional Health Concerns Assessment Noted Time PHQ-9 Depression Total Score: 0 05/12/19 24 9:30 AM LATCHER documented as of this encounter Care Teams Cash Applications Analyst Relationship Specialty Start Date End Date oRry Tilley MD PCP - General Internal Medicine 11/13/21 documented as of this encounter
--- OUTSIDE RECORDS SUMMARY | 2024-10-31 07:13 | XMS_ITS | Clinical Summary ---
Author Organization [facility] [place] [address] Address [facility] [place] [address] Care Team Providers Care Respiratory Therapist Name Role Phone Rory Tilley MD Primary Care Provider +1- [phone] Allergies No known active allergies Medications lisinopriL (PRINIVIL,ZESTRIL) 10 mg tablet 12/29/2022 Active latanoprost (XALATAN) 0.005 % ophthalmic solution 01/01/2023 Active fxlibhjr-hkq-LH-ly copen-lutein 0.4 mg-300 mcg- 250 mcg tablet [...] Tobacco: Never Tobacco Cessation:Counseling Given: Not Answered Comments Unknown Sex and Gender Information Value Date Recorded Sex Assigned at Not on file Legal Sex Female 9:21 AM CDT Gender Identity Not on file Sexual Orientation Not on file Obstetrics History Last Filed Vital Signs Vital Sign Reading Time Taken Comments Blood Pressure 128/70 05/02/2024 11:03 AM SCALLOP BINDER Pulse 72 05/02/2024 11:03 AM SCALLOP BINDER Temperature - - Respiratory Rate - - Oxygen Saturation 90% 04/27/2023 10:36 AM SCALLOP BINDER Inhaled Oxygen Concentration - - Weight 68 kg (150 lb) 05/02/2024 11:03 AM SCALLOP BINDER Height 170.2 cm (5' 7) 05/02/2024 11:03 AM SCALLOP BINDER Body Mass Index 23.49 05/02/2024 11:03 AM SCALLOP BINDER Plan of Treatment Health Maintenance Due Date Last Done Comments Depression Screening 1942 Fall Risk Assessment 1942 DTaP/Tdap/Td Vaccine (1 - Tdap) 1953 Hepatitis B Screening 1960 Zoster Vaccine (1 of 2) 1992 Well Visit 65+ 11/29/2007 Osteoporosis Screening-Bone Density Scan 04/25/2023 04/25/2021 Covid-19 Vaccine (3 - 2023-2 5 season) 2023 06/29/2020, 05/31/2020 Influenza Vaccine (#1) 2024 , 11/13/2021, 12/04/2020, Additional history exists Pneumococcal vaccine 65+ Completed 10/18/2019, 03/2018 Insurance [facility] ADVANTAGE CHOICE PPO Care Teams Respiratory Therapist Relationship Specialty Start Date End Date Rory Tilley MD [address] [place] [address] PCP - General Internal Medicine 07/23/22
[2024-10-31 08:28] LABS: Alanine Aminotransferase 18 U/L (6-35); Albumin Level 4.0 g/dL (3.5-5.1); Alkaline Phosphatase 62 U/L (38-126); Anion Gap 5 mmol/L (4-12); Aspartate Amino Transferase 34 U/L (14-36); Bilirubin,Total 1.4 mg/dL (0.2-1.3); Blood Urea Nitrogen 17 mg/dL (7-17); Calcium 9.3 mg/dL (8.4-10.2); Carbon Dioxide 29 mmol/L (22-30); Chloride 103 mmol/L (98-107); Cholesterol 179 mg/dL (0-200); Estimated Glomerular Filt Rate 58; Glucose 95 mg/dL (65-110); HDL Direct 61 mg/dL; Potassium 4.0 mmol/L (3.4-5.0); Sodium 137 mmol/L (137-145); Total Protein 7.1 g/dL (6.3-8.2); Triglycerides 112 mg/dL (<150)
== END 2024-10-31 07:08 | disposition home or self-care (01) ==
LOC: ANHLAB 07:09
PROVIDERS: PCP Internal Medicine; Visit Provider Internal Medicine
DX: E78.49 Other hyperlipidemia (principal); I10 Essential (primary) hypertension
CPT/HCPCS: 36415; 80053; 80061

== ENCOUNTER 2024-12-12 09:50 | Outpatient (CLI) | payer OTHER, SELFPAY ==
[2024-12-12 10:25] LABS: Hematocrit 37.8 % (37.0-47.0); Hemoglobin 12.3 g/dL (12.0-15.0); Immature Granulocyte Percent A 0.4 % (0-0.5); Lymphocytes Absolute Auto 1.97 K/mm3 (0.9-3.2); Mean Corpuscular HGB Conc 32.5 g/dl (32-36); Mean Corpuscular Hemoglobin 30.1 pg (26-34); Mean Corpuscular Volume 92.6 fl (80-100); Nucleated Red Blood Cells Absolute Auto 0.000 K/mm3 (0.0-0.012); Nucleated Red Blood Cells Perc 0.0 % (0.0-0.2); Platelet Count Result 269 k/mm3 (150-375); Red Blood Count 4.08 M/mm3 (4.2-5.4); White Blood Count 7.5 K/mm3 (4.5-10.0)
[2024-12-12 10:39] LABS: Hemoglobin A1C 5.7 % (<5.7)
[2024-12-12 10:48] LABS: Anion Gap 4 mmol/L (4-12); Blood Urea Nitrogen 18 mg/dL (7-17); Calcium 9.6 mg/dL (8.4-10.2); Carbon Dioxide 30 mmol/L (22-30); Chloride 103 mmol/L (98-107); Estimated Glomerular Filt Rate > 60; Glucose 81 mg/dL (65-110); Potassium 4.1 mmol/L (3.4-5.0); Sodium 137 mmol/L (137-145)
--- OUTSIDE RECORDS SUMMARY | 2024-12-12 10:53 | XMS_ITS | Patient Health Record ---
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 Problem Nuclear senile cataract (218887338) Age-related nuclear cataract, bilateral (H25.13) Active confirmed Problem Vitreous opacities (604067951) Other vitreous opacities, bilateral (H43.393) Active confirmed Problem Primary open-angle glaucoma, bilateral, 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
--- OUTSIDE RECORDS SUMMARY | 2024-12-12 10:53 | XMS_ITS | Clinical Summary ---
Author Organization [facility] [address] Address [facility] [place] [address] Care Team Providers Care Supervisor Prep Name Role Phone Rory Tilley MD Primary Care Provider [phone]- [phone] Allergies No known active allergies Medications lisinopriL (PRINIVIL,ZESTR IL) 10 mg tablet 12/29/2022 Active latanoprost (XALATAN) 0.005 % ophthalmic solution 01/01/2023 Active jpavrdyy-dmg-ZM -lycopen-lutein 0.4 mg-300 mcg- 250 mcg tablet Activ e calcium carbonate-vitam in D3 1500 mg (600 mg elemental) -200 units per tablet Active alendronate (FOSAMAX) 70 mg tablet Take 1 tablet (70 mg total) by mouth once a week 11/01/2024 Active atorvastatin (LIPITOR) 10 mg tablet Take 1 tablet (10 mg total) by mouth daily 11/14/2024 Active citalopram (CeleXA) 10 mg tablet Take 1 tablet (10 mg total) by mouth daily 12/01/2019 Active albuterol HFA (PROVENTIL HFA,VENTOLIN HFA,PROAIR HFA) 90 mcg/actuation inhaler 11/09/2023 Active benzonatate (TESSALON) 100 mg capsule Take 1 capsule (100 mg total) by mouth every 4 (four) hours as needed 12/01/2024 12/12/19 Active Problems Problem Noted Date Diagnosed Date Aortic ectasia 12/02/2024 Urinary tract infection 12/02/2024 Other hyperlipidemia 12/02/2023 Aneurysm of ascending aorta without rupture 01/08 Essential hypertension 01/26/2023 Gross hematuria 01/26/2023 Aneurysm of ascending aorta without rupture 07/2022 Essential hypertension, benign 11/13/2021 Primary osteoarthritis of left knee 02/16/2020 Encounters Date Type Department Care Team Description 12/02/2024 11:45 AM CDT Ancillary Procedure [facility] at [address] [phone] Elbow swelling, left 12/02/2024 11:45 AM CDT Office Visit [facility] at [address] [address] Nubia Barrett NP Elbow swelling, left (Primary Dx); Bursitis of other bursa of right elbow 12/02/2024 Results Follow-Up [facility] at [address] [phone] Nubia Barrett NP XR Elbow Right 3+ Vw from Last 3 Months Immunizations Immunization Administration Dates Next Due Influenza, Quadrivalent, Hig h Dose, Preservative Free, Intrr 12/20/2019 Influenza, Quadrivalent, Spl it, Intramuscular 12/22/2019 Influenza, Quadrivalent, Spl it, Preservative Free, Intradermal 12/04/2020,12/28/2018,01/06/2018,12/08 Influenza, Quadrivalent, Spl it, Preservative Free, Intramuscular 11/13/2021 Influenza, Split 12/05/2015, 5,12/15/2013,11/15 Influenza, Unspecified 12/17/2023 Pneumococcal Conjugate PCV 13 04/09/2018 Pneumococcal Polysaccharide PPV23 10/18/2019 Surgical History Surgery Date Site/Laterality Comments APPENDECTOMY [...] Sign Reading Time Taken Comments Blood Pressure 142/73 12/02/2024 11:31 AM CDT Pulse 73 12/02/2024 11:31 AM CDT Temperature 36.6 C (97.9 F) 12/02/2024 11:31 AM CDT Respiratory Rate 18 12/02/2024 11:31 AM CDT Oxygen Saturation 98% 12/02/2024 11:31 AM CDT Inhaled Oxygen Concentration - - Weight 64.9 kg (143 lb) 12/02/2024 11:31 AM CDT Height 170.2 cm (5' 7) 05/02/2024 11:03 AM SHIFT SUPERVISOR MELTING Body Mass Index 22.4 05/02/2024 11:03 AM SHIFT SUPERVISOR MELTING Plan of Treatment Health Maintenance Due Date Last Done Comments Depression Screening 1940 Fall Risk Assessment 1940 DTaP/Tdap/Td Vaccine (1 - Tdap) 1953 Hepatitis B Screening 1960 Zoster Vaccine (1 of 2) 1992 Well Visit 65+ 11/29/2007 Covid-19 Vaccine (3 - 2024-2 6 season) 2024 06/29/2020, 05/31/2020 Influenza Vaccine (#1) 2024 , 11/13/2021, 12/04/2020, Additional history exists Osteoporosis Screening-Bone Density Scan 10/31/2026 10/31/2024, 10/31/2024, 04/25/2021 Pneumococcal vaccine 65+ Completed 10/18/2019, 03/2018 Procedures Procedure Name Priority Date/Time Associated Diagnosis Comments XR ELBOW RIGHT 3 OR MORE VIEWS Schedule NIKKY, Read NIKKY (Appt Today, Awaiting Results) 12/02/2024 12:03 PM CDT Elbow swelling, left from Last 3 Months Results * XR Elbow Right 3+ Vw (12/02/2024 12:03 PM CDT) Anatomical Region Laterality Modality Upper Extremities, Elbow Right Digital Radiography 12/02/2024 12:4 0 PM CDT Narrative 12/02/2024 12:42 PM CDT EXAM DESCRIPTION: XR ELBOW RIGHT 3 OR MORE VIEWS REASON FOR STUDY: Nontraumatic elbow swelling of unspecified duration other than recently. No prior elbow surgery. TECHNIQUE: 3 radiographic view(s) of the right elbow . COMPARISON: No prior imaging of the right elbow available at time of interpretation. FINDINGS: BONES/JOINTS: No acute fracture. No subluxation. No suspicious osseous lesions. Joint spaces maintained. SOFT TISSUES: Loretto masslike soft tissue swelling overlying the olecranon consistent with olecranon bursitis. IMPRESSION: 1. No acute osseous abnormality of the right elbow. 2. Loretto masslike soft tissue swelling overlying the olecranon consistent with olecranon bursitis. THIS IS AN ELECTRONICALLY VERIFIED FINAL REPORT 12/02/2024 12:42 PM - Electronically signed by Darius Jung M.D. RODRIGUEZ T: Report ID: [id number] Reading Location: [id number] Procedure Note Darius Jung MD - 12/02/2024 EXAM DESCRIPTION: XR ELBOW RIGHT 3 OR MORE VIEWS REASON FOR STUDY: Nontraumatic elbow swelling of unspecified durationother than recently. No prior elbow surgery. TECHNIQUE: 3 radiographic view(s) of the right elbow . COMPARISON: No prior imaging of the right elbow available at time of interpretation. FINDINGS: BONES/JOINTS: No acute fracture. No subluxation. No suspicious osseous lesions. Joint spaces maintained. SOFT TISSUES: Loretto masslike soft tissue swelling overlying the olecranon consistent with olecranon bursitis. IMPRESSION: 1. No acute osseous abnormality of the right elbow. 2. Loretto masslike soft tissue swelling overlying the olecranonconsistent with olecranon bursitis. THIS IS AN ELECTRONICALLY VERIFIED FINAL REPORT 12/02/2024 12:42 PM - Electronically signed by Darius Jung M.D. RODRIGUEZ T: Report ID: [id number] Reading Location: [id number] Nubia Barrett COMMUNITY ENGAGEMENT SPECIALIST IMG XR PROCEDURES Final Result from Last 3 Months Insurance [employer] PPO Care Teams Supervisor Prep Relationship Specialty Start Date End Date Rory Tilley MD [address] [place] [address] PCP - General Internal Medicine 07/23/22
--- OUTSIDE RECORDS SUMMARY | 2024-12-12 10:53 | XMS_ITS | Clinical Summary ---
Author Organization [facility] [place] Address [address] [place] [address] Phone Care Team Providers Care Card Grinder Name Role Phone Rory Tilley MD Primary Care Provider Allergies No known active allergies Medications Calcium Carbonate+Vitam in D 600-200 MG-UNIT Tablet Activ e Multiple Vitamins-Minera ls (Multivitamin Adults 50+) Tablet Active latanoprost (XALATAN) 0.005 % Solution INSTILL 1 DROP INTO EACH EYE ONCE DAILY IN THE EVENING 02/14/20 22 Active fish oil-omega-3 fatty acids 1000 MG Capsule Take 1,000 mg by mouth daily. Active triamcinolone (KENALOG) 0.1 % Ointment Apply thin film to affected area(s) twice daily until healed. 80 g 3 09/23/19 23 Active albuterol 108 (90 Base) MCG/ACT Aerosol Solution 11/09/19 24 Active lisinopril (PRINIVIL, ZESTRIL) 10 MG Tablet Take 1 tablet by mouth once daily 90 Tablet 10/18/19 25 Active alendronate (FOSAMAX) 70 MG Tablet Take 1 Tablet by mouth every 7 days. 12 Tablet 3 11/02/19 25 Active atorvastatin (LIPITOR) 10 MG Tablet Take 1 tablet by mouth once daily 90 Tablet 1 11/15/19 Active atorvastatin (LIPITOR) 10 MG Tablet Take 1 tablet by mouth once daily 30 Tablet 10/18/19 25 025 Discontinued benzonatate (Tessalon Perles) 100 MG Capsule Take 1 Capsule by mouth every 4 hours as needed for Cough for up to 10 days. 30 Capsule 12/02/19 25 025 guaiFENesin-cod eine (guaiFENesin AC) 100-10 MG/5ML SolutionIndicat ions:Cough, unspecified type Take 5 mL by mouth every 4 hours as needed for Cough for up to 7 days. 180 mL 12/02/19 025 Active Problems Problem Noted Date Diagnosed Date Osteopenia after menopause 10/27/2024 Other hyperlipidemia 12/02/2023 Aneurysm of ascending aorta without rupture 07/2022 Essential hypertension, benign 11/13/2021 Encounters Date Type Department Care Team Description 12/01/2024 12:30 PM CDT Office Visit [facility] [place] [address] Ashlyn Scott PAC Cough, unspecified type (Primary Dx) Discharge Disposition: Discharged to home or Selfcare 12/01/2024 Travel 12/01/2024 Telephone [facility] [address] [place] [phone] Rory Tilley MD Appointment 11/22/2024 Results Follow-Up [facility] [address] [place] [address] Rory Tilley MD CMP (COMPREHENSIVE METABOLIC PANEL), CMP (COMPREHENSIVE METABOLIC PANEL), LIPID PANEL 11/13/2024 Refill [facility] [place] [address] [place] [address] Trisha Vincent, SECURITY NURSE, WOMEN'S STUDIES LECTURER Medication Refill 11/01/2024 Documentation Only [facility] [place] [phone] Rory Tilley MD 11/01/2024 [facility] [address] [place] [phone] Rory Tilley MD KAT BONE DENSITOMETRY AXIAL SKELETON, CMP (COMPREHENSIVE METABOLIC PANEL), LIPID PANEL 11/01/2024 [facility] [address] [place] [phone] Rory Tilley MD 10/31/2024 1:09 PM CDT - 10/31/2024 11:59 PM CDT Hospital Encounter [facility] [address] [place] [phone] Rory Tilley MD Discharge Disposition: Discharged to home or Selfcare 10/31/2024 Travel 10/27/2024 9:40 AM CDT Office Visit [facility] [address] [place] [address] Rory Tilley MD Essential hypertension, benign (Primary Dx); Other hyperlipidemia; Osteopenia after menopause; Right elbow pain Discharge Disposition: Discharged to home or Selfcare 10/27/2024 Telephone [facility] [address] [place] [phone] Rory Tilley MD Labs Only 10/27/2024 Travel 10/15/2024 Refill [facility] [address] [place] [address] Rory Tilley MD Medication Refill 09/19/2024 Refill [facility] [address] [place] [address] Rory Tilley MD Medication Refill from Last 3 Months Immunizations Immunization Administration Dates Next Due Influenza Vaccine, Quadrivalent, PF 11/13/2021 Influenza, Quadrivalent, Adjuvanted 11/11/2022 Family History Medical History Relation Name Comments No Known Problems Brother Rheumatoid Arthritis Father Emily Stroke Maternal Grandmother Ewa Cancer Mother Venita Rashes/Skin Problems Mother Venita Mccord H carla disease Heart Attack Paternal Grandfather Edward Diabetes Paternal Uncle Helio No Known Problems Sister Relation Name Status Comments Brother Alive Father Emily Maternal Grandmother Ewa Alive Mother Venita Paternal Grandfather Edward Alive Paternal Uncle Helio Alive Sister Alive Social History Tobacco Use Types Packs/Day Years Used Date Smoking Tobacco: Never Passive Smoke Exposure: Never Smokeless Tobacco: Never Tobacco Cessation:Counseling Given: No Alcohol Use Standard Drinks/Week Comments Not Currently 0 (1 standard drink = 0.6 oz pur e alcohol) [facility] Utilities Answer Date Recorded In the past 12 months has th e electric, gas, oil, or water company [...] week 05/30/2024 How often do you attend [facility] ch or druze services? More than 4 times per year 05/30/2024 Do you belong to any clubs o r organizations such as uatsdin groups, unions, fraternal or athletic groups, or [...] Total Score - Questions 1-9 0 05/08 [facility] - Occupational Stress [...] place to sleep or slept in a chcf (including now)? No 05/10/2023 Housing Stability Vital Sign Answer Rod e Recorded In the last 12 months, was t here a time when you were not able to pay the mortgage or rent on time? No 05/30/2024 In the past 12 months, how m any times have you moved where you were living? 0 05/30/2024 At any time in the past 12 m [facility], were you homeless or living in a chcf (including now)? No 05/30/2024 Sexually Active Control Partners Comments Not Currently Comments No Sex and Gender Information Value Date Recorded Sex Assigned at Not on file Legal Sex Female 9:35 AM CDT Gender Identity Female 10/28/2024 3:19 PM CDT Sexual Orientation Not on file Last Filed Vital Signs Vital Sign Reading Time Taken Comments Blood Pressure 102/54 12/01/2024 12:41 PM CDT Pulse 97 12/01/2024 12:41 PM CDT Temperature 36.3 C (97.3 F) 12/01/2024 12:41 PM CDT Respiratory Rate 20 12/01/2024 12:41 PM CDT Oxygen Saturation 97% 12/01/2024 12:41 PM CDT Inhaled Oxygen Concentration - - Weight 66 kg (145 lb 8 oz) 12/01/2024 12:41 PM C DT Height 170.2 cm (5' 7) 12/01/2024 12:41 PM CDT Body Mass Index 22.79 12/01/2024 12:41 PM CDT Plan of Treatment Upcoming Encounters Date Type Department Care Team (Late st Contact Info) Description 12/14/2024 1:45 PM CDT Office Visit [facility] - [address] [place] [address] Ashlyn Scott PAC [address] [place], [place] [phone] 05/01/2025 10:20 AM INTERNAL SALES Office Visit [facility] [place] [address] [place] [address] Rory Tilley MD [address] [place] [address] Health Maintenance Due Date Last Done Comments Hepatitis C Virus (HCV) Screening 1940 TdaP Immunization 1940 Zoster Immunization (1 of 2) 1992 Medicare Initial AWV G0438 11/07/2008 Respiratory Syncytial Virus (RSV) Immunization (Adult) (1 - 1-dose 75+ series) 2017 SARS-COV-2 Immunization (3 - season) 2024 06/29/2020, 05/31/2020 DEXA Bone Density 10/31/2026 10/31/2024 Pneumococcal Immunization (50+ years) Completed 10/18/2019, 04/09/2018 Influenza Immunization Completed , 12/17/2023, 11/11/2022, Additional history exists Hepatitis B Immunization Aged Out No longer [...] on patient's age to complete this topic Procedures Procedure Name Priority Date/Time Associated Diagnosis Comments [facility] BONE DENSITOMETRY AXIAL SKELETON Routine 10/31/2024 1:22 PM CDT Osteopenia after menopause LIPID PANEL 10/31/2024 12:00 AM CDT CMP (COMPREHENSIVE METABOLIC PANEL) 10/31/2024 12:00 AM CDT CMP (COMPREHENSIVE METABOLIC PANEL) 10/31/2024 12:00 AM CDT LIPID PANEL Routine 10/31/2024 12:00 AM CDT Essential hypertension, benign Other hyperlipidemia CMP (COMPREHENSIVE METABOLIC PANEL) Routine 10/31/2024 12:00 AM CDT Essential hypertension, benign Other hyperlipidemia LIPID PANEL 10/31/2024 12:00 AM CDT CMP (COMPREHENSIVE METABOLIC PANEL) 10/31/2024 12:00 AM CDT from Last 3 Months Results * [facility] BONE DENSITOMETRY AXIAL SKELETON (10/31/2024 1:22 PM CDT) Anatomical Region Laterality Modality BODY N/A Computed Radiogr aphy 10/31/2024 8:21 PM CDT Impressions 10/31/2024 8:23 PM CDT IMPRESSION: 1. Low Bone Mass. REFERENCE: Bone mineral density: T-Score: Normal (T-score above or = -1.0) Low bone mass (T-score between -1.0 and -2.5) replaces the previously used term osteopenia Osteoporosis (T-score = or below -2.5) Z-Score: Within the expected range for age (Z-score above -2.0) Below the expected range for age (Z-score is -2.0 or below) Please see below follow up recommendations. Medical evaluation for secondary causes of low bone mineral density may be appropriate. FRAX is a World Health Organization validated fracture risk assessment tool that calculates a person's 10 year probability of a major osteoporosis related fracture and hip fracture. According to the National Osteoporosis Foundation guidelines, postmenopausal women and men age 50 or older with low bone mass and a 10 year probability of a major osteoporosis related fracture = or greater than 20% or a 10 year probability of a hip fracture = or greater than 3% should be considered for pharmacological treatment for the prevention of osteoporosis. 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 CLINICAL INFORMATION: Current height: 67 inches Maximum height: 67.5 inches Weight: 143 pounds Risk factors: Postmenopausal COMPARISON: None available FINDINGS: AP LUMBAR SPINE L1-L4: Total BMD is 1.069 g/cm2 T-score is -1.0 LEFT HIP: Total BMD is 0.741 g/cm2 T-score is -2.1 Femoral neck BMD is 0.713 g/cm2 T-score is -2.3 FRAX: 10 year risk for a major osteoporotic fracture is 16.5 %, 10 year risk for a hip fracture is 5.9 % Per National Osteoporosis Foundation guidelines, this patient does meet the criteria for pharmacological treatment of patients with FRAX 10 year major osteoporotic fracture risk scores of = or greater than 20% or a 10 year probability of a hip fracture = or greater than 3%, to reduce fracture risk. Additional factors such as frequent falls are not represented in FRAX and warrant individual clinical judgment. THIS IS AN ELECTRONICALLY VERIFIED FINAL REPORT 10/31/2024 8:21 PM - Electronically signed by Thor Bolivar M.D. 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 CLINICAL INFORMATION: Current height: 67 inches Maximum height: 67.5 inches Weight: 143 pounds Risk factors: Postmenopausal COMPARISON: None available FINDINGS: AP LUMBAR SPINE L1-L4: Total BMD is 1.069 g/cm2 T-score is -1.0 LEFT HIP: Total BMD is 0.741 g/cm2 T-score is -2.1 Femoral neck BMD is 0.713 g/cm2 T-score is -2.3 FRAX: 10 year risk for a major osteoporotic fracture is 16.5 %, 10 year risk for a hip fracture is 5.9 % Per National Osteoporosis Foundation guidelines, this patient does meet the criteria for pharmacological treatment of patients with FRAX 10 year major osteoporotic fracture risk scores of = or greater than 20% or a 10 year probability of a hip fracture = or greater than 3%, to reduce fracture risk. Additional factors such as frequent falls are not represented in FRAX and warrant individual clinical judgment. THIS IS AN ELECTRONICALLY VERIFIED FINAL REPORT 10/31/2024 8:21 PM - Electronically signed by Thor Bolivar M.D. MF: MARK Report ID: [id number] Reading Location: [id number] IMPRESSION: 1. Low Bone Mass. REFERENCE: Bone mineral density: T-Score: Normal (T-score above or = -1.0) Low bone mass (T-score between -1.0 and -2.5) replaces the previously used term osteopenia Osteoporosis (T-score = or below -2.5) Z-Score: Within the expected range for age (Z-score above -2.0) Below the expected range for age (Z-score is -2.0 or below) Please see below follow up recommendations. Medical evaluation for secondary causes of low bone mineral density may be appropriate. FRAX is a World Health Organization validated fracture risk assessment tool that calculates a person's 10 year probability of a major osteoporosis related fracture and hip fracture. According to the National Osteoporosis Foundation guidelines, postmenopausal women and men age 50 or older with low bone mass and a 10 year probability of a major osteoporosis related fracture = or greater than 20% or a 10 year probability of a hip fracture = or greater than 3% should be considered for pharmacological treatment for the prevention of osteoporosis. For further information, including treatment recommendations, please refer to the 2019 ISCD Official Positions (http://www.iscd.org) and the NOF's Clinician's Guide to Prevention and Treatment of Osteoporosis (http://www.nof.org/professionals/clinical-guidelines) us Rory Tilley MD IMG DEXA ORDERABLES Final R esult * LIPID PANEL (10/31/2024 12:00 AM CDT) Only the most recent of3 resultswithin the time period is included. CHOLESTEROL 179 SCAN HDL CHOLESTEROL 61 SCAN 10/31/2024 us Rory Tilley MD CHEMISTRY ORDERABLES Final Result SCAN * CMP (COMPREHENSIVE METABOLIC PANEL) (10/31/2024 12:00 AM CDT) Only the most recent of4 resultswithin the time period is included. 10/31/2024 us Rory Tilley MD CHEMISTRY ORDERABLES Final Result SCAN from Last 3 Months Insurance MEDICARE C [employer] Care Teams Card Grinder Relationship Specialty Start Date End Date Rory Tilley MD PCP - General Internal Medicine 11/13/21
--- OUTSIDE RECORDS SUMMARY | 2024-12-12 10:53 | XMS_ITS | Encounter Summary ---
Author Organization [facility] Healthcare Address [address] [place] [address] Care Team Providers Care Preschool Assistant Name Role Phone Rory Tilley MD Primary Care Provider +1- [phone] Encounter Details Date Type Department Care Team (Late st Contact Info) Description 04/27/2024 Orders Only [facility] Health Information Management [address] [place] [id number] Scanning, Provider Social History Tobacco Use [...] on filedocumented in this encounter Care Teams Preschool Assistant Relationship Specialty Start Date End Date Rory Tilley MD [address] [place] [address] PCP - General Internal Medicine 07/23/22 documented as of this encounter
--- OUTSIDE RECORDS SUMMARY | 2024-12-12 10:53 | XMS_ITS | Encounter Summary ---
Author Organization [facility] Healthcare Address [address] [place] [address] Care Team Providers Care Make Ready Mechanic Name Role Phone Rory Tilley MD Primary Care Provider +1- [phone] Encounter Details Date Type Department Care Team (Late st Contact Info) Description 12/02/2024 Results Follow-Up [facility] at [place] [address] [place] [address] Nubia Barrett NP [address] [facility] [address] [place] [address] XR Elbow Right 3+ Vw Social History Tobacco Use Types Packs/Day Years [...] on file documented as of this encounter Visit Diagnoses Not on filedocumented in this encounter Care Teams Make Ready Mechanic Relationship Specialty Start Date End Date Rory Tilley MD [address] [place] [address] PCP - General Internal Medicine 07/23/22 documented as of this encounter
--- OUTSIDE RECORDS SUMMARY | 2024-12-12 10:53 | XMS_ITS | Encounter Summary ---
Author Organization [facility] Address [address] [place] [address] Phone Care Team Providers Care Machine Filler Name Role Phone Rory Tilley MD Primary Care Provider Reason for Visit * Reason Comments Medication Refill Encounter Details Date Type Department Care Team (Late st Contact Info) Description 06/24/2023 Refill [facility] - Internal Medicine - [place] [address] [place] [address] Rory Tilley MD [address] [place] [address] Medication Refill Social History Tobacco Use Types Packs/Day Years Used Date Smoking Tobacco: Never Passive Smoke Exposure: Never Smokeless Tobacco: Never Alcohol Use Standard Drinks/Week Comments Not Currently 0 (1 standard drink = 0.6 oz pur e alcohol) [facility] Utilities Answer Date Recorded In the past 12 months has [employer] electric, gas, oil, or water company threatened [...] often do you attend chur ch or taoist services? More than 4 times per year 05/10/2023 Do you belong to any clubs o r organizations such as orthodox groups, unions, fraternal or athletic groups, or [...] Total Score - Questions 1-9 0 07/2023 [facility] of Occupat ional Health - Occupational [...] place to sleep or slept in a residential (including now)? No 05/10/2023 Sexually Active Control [...] Dept 05/12/23 Office Visit R[facility] 11/11/22 Office Visit Rory Tilley MD [facility] [place] 10/10/22 Office Visit Ashlyn Scott, PAC [facility] [place] 09/22/22 Office Visit Ashlyn Scott, PAC [facility] [place] 07/23/22 Office Visit Rory Tilley MD [facility] [place] Showing recent visits within past 365 days and meeting all other requirements Future Appointments No visits were found meeting these conditions. Showing future appointments within next 90 days and meeting all other requirements documented in this encounter Plan of Treatment Upcoming Encounters Date Type Department Care Team (Late st Contact Info) Description 12/14/2024 1:45 PM CDT Office Visit [facility] - [place] [place] [address] Ashlyn Scott, PAC [address] [place] [address] 05/01/2025 10:20 AM WARDROBE TECHNICIAN Office Visit [facility] - [address] [place] [address] Rory Tilley MD [address] [place] [address] documented as of this encounter Visit Diagnoses Not on filedocumented in this encounter Additional Health Concerns Assessment Noted Time PHQ-9 Depression Total Score: 0 05/12/19 24 9:30 AM WARDROBE TECHNICIAN documented as of this encounter Care Teams Machine Filler Relationship Specialty Start Date End Date Rory Tilley MD PCP - General Internal Medicine 11/13/21 documented as of this encounter
[2024-12-12 11:08] LABS: Free T4 Free Thyroxine 0.96 ng/dL (0.78-2.19)
[2024-12-12 11:24] LABS: Thyroid Stimulating Hormone 2.490 uIU/mL (0.465-4.680)
[2024-12-12 11:24] LABS: Add Urine Microscopic? YES; Appearance Urine Clear (Clear); Glucose Urine UA Negative (Negative); Leukocyte Esterase Ur 1+ LEU/UL (Negative); Need Manual Microscopic Reviewed; Nitrate Urine Negative (Negative); Non Pathogenic Casts 0-2; Specific Grav Ur 1.006 (1.001-1.035)
== END 2024-12-12 09:51 | disposition home or self-care (01) ==
PROVIDERS: PCP Internal Medicine; Visit Provider Internal Medicine
DX: E55.9 Vitamin D deficiency, unspecified (principal); Z79.899 Other long term (current) drug therapy; Z13.29 Encounter for screening for other suspected endocrine disorder; Z13.1 Encounter for screening for diabetes mellitus; I10 Essential (primary) hypertension
CPT/HCPCS: 36415; 80048; 81001; 82306; 83036; 84439; 84443; 85025; 87086

== ENCOUNTER 2025-02-07 15:08 | Outpatient (CLI) | payer OTHER, SELFPAY ==
--- NOTE | ~2025-02-07 | XR_ITS ---
XR hip LT 2V w AP pelvis 02/07/2025 15:32 Indication: Left hip pain Procedure: 3 views left hip Comparison: No prior studies for comparison. Findings: No fracture, subluxation or dislocation. Mild osteoarthritis of the hip. Normal mineralization. No focal soft tissue abnormality. No foreign bodies. Impression: 1: Mild osteoarthritis of the left hip. Reviewed, dictated and finalized at location I. ER EXPEDITOR AND DRIER Impression: 1: Mild osteoarthritis of the left hip.
--- OUTSIDE RECORDS SUMMARY | 2025-02-07 16:29 | XMS_ITS | Clinical Summary ---
Author Organization [facility] [address] Address [facility] [place] [address] Care Team Providers Care Front Office Representative Name Role Phone Rory Tilley MD Primary Care Provider [phone] Allergies No known active allergies Medications lisinopriL (PRINIVIL,ZESTRI L) 10 mg tablet 12/29/2022 Act pastora latanoprost (XALATAN) 0.005 % ophthalmic solution 01/01/2023 Active nyalffuf-jfj-UO- lycopen-lutein 0.4 mg-300 mcg- 250 mcg tablet Activ e calcium carbonate-vitami n D3 1500 mg (600 mg elemental) -200 units per tablet Act pastora alendronate (FOSAMAX) 70 mg tablet Take 1 tablet (70 mg total) by mouth once a week 11/01/2024 Active atorvastatin (LIPITOR) 10 mg tablet Take 1 tablet (10 mg total) by mouth daily 11/14/2024 Active citalopram (CeleXA) 10 mg tablet Take 1 tablet (10 mg total) by mouth daily 12/01/2019 Active albuterol HFA (PROVENTIL HFA,VENTOLIN HFA,PROAIR HFA) 90 mcg/actuation inhaler 11/09/2023 Active Active Problems Problem Noted Date Diagnosed Date Aortic ectasia 12/02/2024 Urinary tract infection 12/02/2024 Other hyperlipidemia 12/02/2023 Aneurysm of ascending aorta without rupture 01/08 Essential hypertension 01/26/2023 Gross hematuria 01/26/2023 Aneurysm of ascending aorta without rupture 07/2022 Essential hypertension, benign 11/13/2021 Primary osteoarthritis of left knee 02/16/2020 Encounters Date Type Department Care Team Description 12/02/2024 11:45 AM CDT Ancillary Procedure [facility] at [address] [address] Elbow swelling, left 12/02/2024 11:45 AM CDT Office Visit [facility] at [address] [address] Nubia Barrett NP Elbow swelling, left (Primary Dx); Bursitis of other bursa of right elbow 12/02/2024 Results Follow-Up [facility] at [address] [address] Nubia Barrett NP XR Elbow Right 3+ [...] 170.2 cm (5' 7) 05/02/2024 11:03 AM LEAD PORTFOLIO MANAGER Body Mass Index 22.4 05/02/2024 11:03 AM LEAD PORTFOLIO MANAGER Plan of Treatment Health Maintenance Due Date [...] osseous lesions. Joint spaces maintained. SOFT TISSUES: [place] masslike soft tissue swelling overlying the olecranon consistent with olecranon bursitis. IMPRESSION: 1. No acute osseous abnormality of the right elbow. 2. [place] masslike soft tissue swelling overlying the olecranon consistent with olecranon bursitis. THIS IS AN ELECTRONICALLY VERIFIED FINAL REPORT 12/02/2024 12:42 PM - Electronically signed by Darius FRIAS T: Report ID: [id number] Reading Location: [id number] Procedure Note Darius Jung MD - 12/02/2024 [...] osseous lesions. Joint spaces maintained. SOFT TISSUES: [place] masslike soft tissue swelling overlying the olecranon consistent with olecranon bursitis. IMPRESSION: 1. No acute osseous abnormality of the right elbow. 2. [place] masslike soft tissue swelling overlying the olecranonconsistent with olecranon bursitis. THIS IS AN ELECTRONICALLY VERIFIED FINAL REPORT 12/02/2024 12:42 PM - Electronically signed by Darius FRIAS T: Report ID: [id number] Reading Location: [id number] Nubia Barrett ANNEALER IMG XR PROCEDURES Final Result from Last 3 Months Insurance [employer] PPO Care Teams Front Office Representative Relationship Specialty Start Date End Date Rory Tilley MD [address] [place] [address] PCP - General Internal Medicine 07/23/22
--- OUTSIDE RECORDS SUMMARY | 2025-02-07 16:29 | XMS_ITS | Clinical Summary ---
Author Organization [facility] Address [address] [place] [address] Phone Care Team Providers Care Director Of Promotions Name Role Phone Rory Tilley MD Primary Care Provider [phone] Allergies No known active allergies Medications Calcium Carbonate+Merle min D 600-200 MG-UNIT Tablet Activ e Multiple Vitamins-[place] als (Multivitamin Adults 50+) Tablet Active latanoprost [...] (90 Base) MCG/ACT Aerosol Solution 4 Active alendronate (FOSAMAX) 70 MG Tablet Take 1 Tablet by mouth every 7 days. 12 Tablet 3 5 Active atorvastatin (LIPITOR) 10 MG Tablet Take 1 tablet by mouth once daily 90 Tablet 1 5 Active lisinopril (PRINIVIL, ZESTRIL) 10 MG Tablet Take 1 tablet by mouth once daily 90 Tablet Active lisinopril (PRINIVIL, ZESTRIL) 10 MG Tablet Take 1 tablet by mouth once daily 90 Tablet 025 Discontinued Active Problems Problem Noted Date Diagnosed Date Osteopenia after menopause 10/27/2024 Other hyperlipidemia 12/02/2023 Aneurysm of ascending aorta without rupture 07/2022 Essential hypertension, benign 11/13/2021 Encounters Date Type Department Care Team Description 01/12/2025 Refill [facility] Internal Medicine [facility] [address] [place] [address] Trisha Vincent APRN, NATA Medication Refill 12/01/2024 12:30 PM CDT Office Visit [address] [address] Ashlyn Scott PAC Cough, unspecified type (Primary Dx) Discharge Disposition: Discharged to home or Selfcare 12/01/2024 Travel 12/01/2024 Telephone [facility] [address] [place] [address] Rory Tilley MD Appointment 11/22/2024 Results Follow-Up [place] [address] [place] [address] Rory Tilley MD CMP (COMPREHENSIVE METABOLIC PANEL), CMP (COMPREHENSIVE METABOLIC PANEL), LIPID PANEL 11/13/2024 Refill [facility] Internal [facility] [address] [place] [address] Trisha Vincent APRN, STAFF TRAINING AND DEVELOPMENT MANAGER Medication Refill from Last 3 Months Immunizations Immunization Administration Dates Next Due Influenza Vaccine, Quadrivalent, PF 11/13/2021 Influenza, Quadrivalent, Adjuvanted 11/11/2022 Family History Medical History Relation Name Comments No Known Problems Brother Rheumatoid Arthritis Father Patrick Stroke Maternal Grandmother [place] Cancer Mother Venita Rashes/Skin Problems Mother Venita Whiteheadey H carla disease Heart Attack Paternal Grandfather Edbg Diabetes Paternal Uncle Helio No Known Problems Sister Relation Name Status Comments Brother Alive Father Patrick Maternal Grandmother [place] Alive Mother Venita Paternal Grandfather Edbg Alive Paternal Uncle Helio Alive Sister Alive Social History Tobacco Use Types Packs/Day Years Used Date Smoking Tobacco: Never Passive Smoke Exposure: Never Smokeless Tobacco: Never Tobacco Cessation:Counseling Given: No Alcohol Use Standard Drinks/Week Comments Not Currently 0 (1 standard drink = 0.6 oz pur e alcohol) [facility] Utilities Answer Date Recorded In the past 12 months has th e electric, gas, oil, or water [employer] threatened to shut off services in your [...] week 05/30/2024 How often do you attend [facility] ch or pentecostalism services? More than 4 times per year 05/30/2024 Do you belong to any clubs o r organizations such as cheondoism groups, unions, fraternal or athletic groups, or [...] Total Score - Questions 1-9 0 05/08 [facility] of Occupat ional Health - Occupational Stress [...] place to sleep or slept in a fdc (including now)? No 05/10/2023 Housing Stability Vital Sign Answer Rod e Recorded In the last 12 months, was t here a time when you were not able to pay the mortgage or rent on time? No 05/30/2024 In the past 12 months, how m any times have you moved where you were living? 0 05/30/2024 At any time in the past 12 m [facility], were you homeless or living in a fdc (including now)? No 05/30/2024 Sexually Active Control [...] 12/01/2024 12:41 PM CDT Plan of Treatment Health Maintenance Due Date Last Done Comments Hepatitis C Virus (HCV) Screening 1940 TdaP Immunization 1942 Zoster Immunization (1 of 2) 1992 Medicare Initial AWV [id number] 11/07/2008 Respiratory Syncytial Virus (RSV) Immunization (Adult) (1 - 1-dose 75+ series) 2017 SARS-COV-2 Immunization ( season) 2024 06/29/2020, 05/31/2020 DEXA Bone Density [...] Procedure Name Priority Date/Time Associated Diagnosis Comments KAT BONE DENSITOMETRY AXIAL SKELETON Routine 10/31/2024 1:22 PM CDT Osteopenia after menopause from Last 3 Months or Most Recently Relevant to Health Maintenance Results * KAT BONE DENSITOMETRY AXIAL SKELETON (10/31/2024 1:22 PM [...] Narrative 10/31/2024 8:23 PM CDT EXAM DESCRIPTION: [facility] BONE DENSITOMETRY AXIAL SKELETON REASON FOR STUDY: 83 y/o year old F with given history of: 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 MF: MARK Report ID: [id number] Reading Location: [place] [address] IMPRESSION: 1. Low Bone Mass. REFERENCE: Bone [...] MD IMG DEXA ORDERABLES Final R esult from Last 3 Months or Most Recently Relevant to Health Maintenance Insurance MEDICARE C [employer] Care Teams Director Of Promotions Relationship Specialty Start Date End Date Rory Tilley MD PCP - General Internal Medicine 11/13/21
--- OUTSIDE RECORDS SUMMARY | 2025-02-07 16:29 | XMS_ITS | Encounter Summary ---
Author Organization [facility] Healthcare Address [address] [place] [address] Care Team Providers Care Principal Cyber Engineer Name Role Phone Rory Tilley MD Primary Care Provider [phone] Encounter Details Date Type Department Care Team (Late st Contact Info) Description 04/27/2024 Orders Only [facility] Health Information Management [address] [place] [id number] Scanning, Provider Social History Tobacco Use [...] on filedocumented in this encounter Care Teams Principal Cyber Engineer Relationship Specialty Start Date End Date Rory Tilley MD [address] [place] [address] PCP - General Internal Medicine 07/23/22 documented as of this encounter
--- OUTSIDE RECORDS SUMMARY | 2025-02-07 16:29 | XMS_ITS | Encounter Summary ---
Author Organization [facility] Address [address] [place] [address] Phone Care Team Providers Care Invoice Clerk Name Role Phone Rory Tilley MD Primary Care Provider Reason for Visit * Reason Comments Medication Refill Encounter Details Date Type Department Care Team (Late st Contact Info) Description 06/24/2023 Refill [facility] - [place] [address] [place] [address] Rory Tilley MD [address] [place] [address] Medication Refill Social History Tobacco Use Types Packs/Day Years Used Date Smoking Tobacco: Never Passive Smoke Exposure: Never Smokeless Tobacco: Never Alcohol Use Standard Drinks/Week Comments Not Currently 0 (1 standard drink = 0.6 oz pur e alcohol) [facility] Utilities Answer Date Recorded In the past 12 months has [email or web address], gas, oil, or water company threatened to [...] often do you attend chur ch or uatsdin services? More than 4 times per year 05/10/2023 Do you belong to any clubs o r organizations such as temple groups, unions, fraternal or athletic groups, or [...] Total Score - Questions 1-9 0 07/2023 [facility] of Occupat ional Health - Occupational Stress [...] place to sleep or slept in a [place] facility (including now)? No 05/10/2023 Sexually Active Control [...] Dept 05/12/23 Office Visit Rory Tilley MD [facility] 11/11/22 Office Visit Rory Tilley MD [facility] 10/10/22 Office Visit Ashlyn Scott, PAC [facility] [place] 09/22/22 Office Visit Ashlyn Scott, PAC [facility] [place] 07/23/22 Office Visit Rory Tilley MD [facility] [place] Showing recent visits within past 365 days and meeting all other requirements Future Appointments No visits were found meeting these conditions. Showing future appointments within next 90 days and meeting all other requirements documented in this encounter Plan of Treatment Not on file documented as of this encounter Visit Diagnoses Not on filedocumented in this encounter Additional Health Concerns Assessment Noted Time PHQ-9 Depression Total Score: 0 05/12/19 24 9:30 AM MAGNETIC PROSPECTING SUPERVISOR documented as of this encounter Care Teams Invoice Clerk Relationship Specialty Start Date End Date Rory Tilley MD PCP - General Internal Medicine 11/13/21 documented as of this encounter
== END 2025-02-07 15:09 | disposition home or self-care (01) ==
PROVIDERS: PCP Internal Medicine; Visit Provider Internal Medicine
DX: M16.12 Unilateral primary osteoarthritis, left hip (principal)
CPT/HCPCS: 73502

== ENCOUNTER 2025-02-13 09:50 | Outpatient (CLI) | payer OTHER, SELFPAY ==
--- NOTE | ~2025-02-13 | US_ITS ---
EXAMINATION: US soft tissue LE RT, 02/13/2025 9:51 ACCOUNT EXECUTIVE HISTORY: R22.41 - Localized swelling, mass and lump, right lower limb Comparison: None Technique: Gómez-scale and color Doppler images were obtained. Findings: Correlating with the palpable area there is a complex focus with posterior shadowing measuring 1 x 1.5 x 0.9 cm, no increased flow although evaluation is limited. IMPRESSION: Complex calcified focus which is nonspecific. Correlation with CT is suggested to assess Reviewed, dictated and finalized at location P. UNT EXECUTIVE IMPRESSION: Complex calcified focus which is nonspecific. Correlation with CT i s suggested to assess
== END 2025-02-13 09:51 | disposition home or self-care (01) ==
LOC: GOSHIMG 09:50
PROVIDERS: PCP Internal Medicine; Visit Provider Internal Medicine
DX: R22.41 Localized swelling, mass and lump, right lower limb (principal)
CPT/HCPCS: 76882

== ENCOUNTER 2025-02-24 11:48 | Outpatient (CLI) | payer OTHER, SELFPAY ==
--- NOTE | ~2025-02-24 | CT_ITS ---
EXAMINATION: CT femur RT w con DATE: 02/24/2025 12:26 INDICATION: Complex calcified mass at the lateral proximal right thigh on prior ultrasound TECHNIQUE: High resolution computed tomography (CT) of the right femur from above hip through the knee was performed with 100 mL Omnipaque-350 intravenous contrast. Additional sagittal and coronal reconstructions were performed. Automated exposure control and iterative reconstruction technique were employed. The dose-length product was 433.96 mGy-cm. 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 Bone alignment is normal. No fracture or osteonecrosis. Mild osteoarthritis at the right hip and knee with no hip or knee joint effusion. Scattered atherosclerotic calcifications without hemodynamically significant stenosis along the right external iliac, common femoral, femoral and popliteal arteries. Soft tissues throughout the right thigh are otherwise unremarkable. IMPRESSION: 1. 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 Reviewed, dictated and finalized at location A. ENGINEER IMPRESSION: 1. 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
[2025-02-24 12:12] LABS: Estimated Glomerular Filt Rate 43
== END 2025-02-24 11:49 | disposition home or self-care (01) ==
PROVIDERS: PCP Internal Medicine; Visit Provider Internal Medicine
DX: R93.89 Abnormal findings on diagnostic imaging of other specified body structures (principal)
CPT/HCPCS: 73701; Q9967